=== PATIENT | male | born 1985 | race Two or more races ===

== ENCOUNTER 2017-06-08 21:48 | Emergency (ER) | payer MEDICAID, OTHER ==
[2017-06-08 21:54] VITALS: BP 151/91
[2017-06-08] MEDS ORDERED: ACETAMINOPHEN WITH CODEINE #3 TABLET PO ONE (23:12)
--- NOTE | 2017-06-08 23:13 | ER Document Report ---
HPI - HPI Pain Level: 5 Context: Patient is a 34-year-old male presents emergency department complaining of right jaw pain. Patient states that this started about a week ago. He denies any fever, chills, sinus congestion runny nose. He states it is worse at night especially when he wakes up. He does admit to history of TMJ and grinding his teeth. - CARDIOVASCULAR Cardiovascular: DENIES: Chest pain Past Medical History - Social History Smoking Status: Never Smoker Chew tobacco use (# tins/day): No Frequency of alcohol use: None Drug Abuse: Marijuana Family History: Reviewed & Not Pertinent Patient has suicidal ideation: No Patient has homicidal ideation: No Renal/ Medical History: Denies: Hx Peritoneal Dialysis Surgical Hx: Negative Vertical Provider Document - CONSTITUTIONAL Agree With Documented VS: Yes Exam Limitations: No Limitations General Appearance: WD/WN, No Apparent Distress - INFECTION CONTROL TRAVEL OUTSIDE OF THE [place] IN LAST 30 DAYS: No - HEENT Notes: PHYSICAL EXAM GENERAL: Alert, interacts well. HEAD: Normocephalic, atraumatic. ENT: External auditory canal without any evidence of edema, erythema. Tympanic membrane without any evidence of effusion, bulging injection or perforation. Oral mucosa moist, tongue midline. Uvula midline. Airway patent. No evidence of tonsillar enlargement, peritonsillar abscess, retropharyngeal abscess. Jaw nontender to palpation over left TMJ and mild reproducibility of symptoms over the right. NECK: Full range of motion. Supple. Trachea midline. LUNGS: Clear to auscultation bilaterally, no wheezes, rales, or rhonchi. No respiratory distress. HEART: Regular rate and rhythm. No murmurs, gallops, or rubs. EXTREMITIES: Moves all 4 extremities spontaneously. No edema, radial and dorsalis pedis pulses 2/4 bilaterally. No cyanosis. NEUROLOGICAL: Alert and oriented x4. Normal speech. PSYCH: Normal affect, normal mood. SKIN: Warm, dry, normal turgor. No rashes or lesions noted. - RESPIRATORY O2 Sat by Pulse Oximetry: 100 Course - Re-evaluation Re-evalutation: 06/08/17 23:13 Patient is a 32-year-old male is hemodynamically stable, no acute distress afebrile. 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 Discussed with him side effects of this and not being compliant with his previous indications of using a mouthguard. Discussed with him that he can follow-up with his primary care dentist. Patient agrees with plan is stable for discharge home. - Vital Signs Vital signs: Temp Pulse Resp BP Pulse Ox 97.9 F 78 18 151/91 H 100 06/08/17 21:52 06/08/17 21:52 06/08/17 21:52 06/08/17 21:52 06/08/17 21:52 Discharge - Discharge Clinical Impression: TMJ (temporomandibular joint disorder) Condition: Good Disposition: HOME, SELF-CARE Instructions: Acetaminophen, Use of [id number] Ibuprofen ([facility]), Temporomandibular Joint Syndrome ([facility]) Additional Instructions: [facility] [address] [place], [place] Wednesday mornings, by appointment [facility] [address] [place] [address] [facility] [address] [facility] [address] [facility] ([facility]) [facility] [address] [email or web address] [address] [place] [address] Wednesday- 8:00am to 5:00 pm Will see patients from other [facility]. Charges based on income and family size and accepts Medicare, Medicaid, and Insurances Will pull molars [facility] [place] [id number] Hours of Operation 8:00 am - 4:30 pm weekdays The following dental offices accept Medicaid: [facility] Dr. Cruz Dr. Crum Dr. Hogan Dr. Reeder Bello Celestin Lutsavage, and [facility] Dr. Ortez ([place]) Dr. Humphrey ([place]) [facility] Drs. Hutchins ([place]) Dr. Wilson ([place]) [facility] Dr. Reyes ([place]) Drs. Barker and ([place]) Medicaid Care Line Referrals: MICHAEL RINCON MD [Primary Care Provider] - Follow up as needed
== END 2017-06-08 23:30 | disposition home or self-care (01) ==
LOC: ER 21:48
DX: M26.621 Arthralgia of right temporomandibular joint (principal); Z91.19 Patient's noncompliance with other medical treatment and regimen
CPT/HCPCS: 99282